=== PATIENT | male | born 1945 | race Caucasian/White ===

== ENCOUNTER → 2022-08-22 | Outpatient (CLI) | payer MEDICARE, OTHER ==
[2022-08-23 13:27] LABS: Stool Occult Bld Immuno 1 Negative (NEGATIVE)
== END ==
LOC: LAB 18:45 → LAB SHORT 18:45
PROVIDERS: Family Medicine
DX: D64.9 Anemia, unspecified (principal)
CPT/HCPCS: 82274

== ENCOUNTER 2023-03-19 14:22 | Emergency (ER) | payer MEDICARE, OTHER ==
[~2023-03-19] VITALS: Ht 170.2 cm; Wt 67.6 kg
[2023-03-19 16:07] LABS: Albumin, Blood 2.3 g/dL (3.4-5.0); Albumin/Globulin Ratio 0.7 (0.8-1.8); Bilirubin, Direct 26.4 mg/dL (0.0-0.3); Bilirubin, Indirect 3.5 mg/dL (0.1-0.7); Bilirubin, Total 29.9 mg/dL (0.1-1.0); Globulin, Blood 3.4 g/dL (2.2-4.0); Total Protein, Blood 5.7 g/dL (6.4-8.2)
[2023-03-19 21:38] VITALS: BP 134/81
[2023-03-20 23:09] LABS: HBSAG SCREEN Negative (Negative); HCV AB Non Reactive (Non Reactive); HEP A AB, IGM Negative (Negative); HEP B CORE AB, IGM Negative (Negative)
== END 2023-03-19 21:38 | disposition short-term general hospital (02) ==
LOC: ER 14:22
PROVIDERS: Physician Assistant
DX: K80.51 Calculus of bile duct without cholangitis or cholecystitis with obstruction (principal); K86.9 Disease of pancreas, unspecified; I10 Essential (primary) hypertension; Z79.899 Other long term (current) drug therapy
CPT/HCPCS: 74177; 76705; 80076; 83690; Q9967